=== PATIENT | male | born 1995 | race Caucasian/White ===

== ENCOUNTER 2023-08-10 10:15 | Emergency (ER) | payer OTHER ==
[2023-08-10 10:31] VITALS: BP 132/65; PULSE 85; RESP 17; TEMP 98.3; BMI 27.2
[2023-08-10] MEDS ORDERED: KETOROLAC TROMETHAMINE 30 MG/1 ML VIAL IM ONE (11:09)
[2023-08-10] MEDS ORDERED: DEXAMETHASONE SOD PHOSPHATE 10 MG/1 ML VIAL IM ONE (11:09)
[2023-08-10] MEDS ORDERED: KETOROLAC TROMETHAMINE 30 MG/1 ML VIAL ONE (11:12)
[2023-08-10] MEDS ORDERED: DEXAMETHASONE SOD PHOSPHATE 10 MG/1 ML VIAL ONE (11:12)
== END 2023-08-10 12:48 | disposition home or self-care (01) ==
LOC: JERFT 10:15
PROC: 3E0233Z Introduction of Anti-inflammatory into Muscle, Percutaneous Approach (ICD-10-PCS; principal; 2023-08-10)
PROC: 3E023GC Introduction of Other Therapeutic Substance into Muscle, Percutaneous Approach (ICD-10-PCS; 2023-08-10)
DX: M25.512 Pain in left shoulder (principal); S46.212A Strain of muscle, fascia and tendon of other parts of biceps, left arm, initial encounter; X50.0XXA Overexertion from strenuous movement or load, initial encounter
CPT/HCPCS: 73030-TC-LT-FY; 93005; 93010; 99284-25; J1100

== ENCOUNTER 2023-08-13 04:42 | Emergency (ER) | payer OTHER ==
[2023-08-13 04:57] VITALS: BP 124/76; PULSE 72; RESP 18; TEMP 97.8; BMI 29.2
[2023-08-13] MEDS ORDERED: KETOROLAC TROMETHAMINE 30 MG/1 ML VIAL IM ONE (05:33)
[2023-08-13] MEDS ORDERED: KETOROLAC TROMETHAMINE 30 MG/1 ML VIAL ONE (05:39)
[2023-08-13] MEDS ORDERED: METHOCARBAMOL 500 MG TABLET PO ONE (05:57)
[2023-08-13] MEDS ORDERED: METHOCARBAMOL 500 MG TABLET ONE (05:59)
== END 2023-08-13 06:04 | disposition home or self-care (01) ==
LOC: JER 04:42
PROC: 3E0233Z Introduction of Anti-inflammatory into Muscle, Percutaneous Approach (ICD-10-PCS; principal; 2023-08-13)
DX: M25.512 Pain in left shoulder (principal); G56.92 Unspecified mononeuropathy of left upper limb
CPT/HCPCS: 99284-25

== ENCOUNTER 2023-10-16 02:12 | Emergency (ER) | payer OTHER ==
[2023-10-16 02:22] VITALS: BP 111/61; PULSE 97; RESP 18; TEMP 98; BMI 28.0
[2023-10-16] MEDS ORDERED: DIPHTH,PERTUSS(ACELL),TET 0.5 ML DISP.SYRIN IM ONE (05:34)
[2023-10-16] MEDS: DIPHTH,PERTUSS(ACELL),TET 0.5 ML DISP.SYRIN IM ONE (05:36)
== END 2023-10-16 05:37 | disposition home or self-care (01) ==
LOC: JER 02:12
PROC: 0HQ1XZZ Repair Face Skin, External Approach (ICD-10-PCS; principal; 2023-10-16)
PROC: 3E0234Z Introduction of Serum, Toxoid and Vaccine into Muscle, Percutaneous Approach (ICD-10-PCS; 2023-10-16)
DX: S01.112A Laceration without foreign body of left eyelid and periocular area, initial encounter (principal); Y04.0XXA Assault by unarmed brawl or fight, initial encounter
CPT/HCPCS: 12013; 90471; 90715; 99284-25